=== PATIENT | female | born 1940 | race African-American/Black ===

== ENCOUNTER 2017-04-23 07:41 | Day surgery (SDC) | payer OTHER ==
[2017-04-22 17:08] VITALS: BMI 44.2
[2017-04-23] MEDS ORDERED: PROPOFOL 20 ML ONE ×2 (08:08)
[2017-04-23] MEDS ORDERED: LIDOCAINE HCL/PF 2% SDV 5ML VIAL ONE (08:10)
[2017-04-23 09:08] VITALS: TEMP 97.7
[2017-04-23 10:54] VITALS: BP 122/64; PULSE 84
== END 2017-04-23 11:00 | disposition home or self-care (01) ==
LOC: FASU-ENDO 07:41
PROVIDERS: ATTEND Internal Medicine Gastroenterology
PROC: 0DJD8ZZ Inspection of Lower Intestinal Tract, Via Natural or Artificial Opening Endoscopic (ICD-10-PCS; principal; 2017-04-23 09:58)
DX: Z86.010 Personal history of colon polyps (principal); K57.30 Diverticulosis of large intestine without perforation or abscess without bleeding
CPT/HCPCS: 82962